=== PATIENT | female | born 1990 | race Caucasian/White ===

== ENCOUNTER → 2020-05-14 | Outpatient (CLI) | payer BC ==
--- NOTE | 2020-05-14 11:14 | Diagnostic Imaging Report ---
EXAM: US ABDOMEN COMPLETE DATE: 05/14/2020 10:13 AM INDICATION: Abdominal pain COMPARISON: None FINDINGS: The visualized pancreas appears unremarkable. The liver is normal in size measuring 13.9 cm in length. Hepatic echogenicity is within normal limits. No focal hepatic abnormality is identified. The main portal vein is patent with antegrade flow and diameter of 0.7 cm, within normal limits. The gallbladder is unremarkable. There is no evidence for cholelithiasis, gallbladder wall thickening, or pericholecystic fluid. There is no intra or extra hepatic biliary ductal dilatation. The common bile duct measures 2 mm sonographic Parry's sign is negative. The spleen is normal in size measuring 8.2 cm in length and demonstrates an unremarkable sonographic appearance. The kidneys are normal in size measuring 10.7 cm in length on the right and 10.6 cm in length on the left. Cortical thickness and echogenicity is within normal limits. There is no evidence for solid renal mass, hydronephrosis, or shadowing calculi. The visualized portions the IVC and aorta are within normal limits. There is no ascites visualized. IMPRESSION: Unremarkable abdominal ultrasound examination. Signed by: Dr. Myke Moses MD on 05/14/2020 11:11 AM
--- NOTE | 2020-05-14 11:16 | Diagnostic Imaging Report ---
EXAM: US PELVIS COMPLETE NON OB DATE: 05/14/2020 10:22 AM INDICATION: Lower abdominal pain COMPARISON: None FINDINGS: Transabdominal images were obtained of the pelvis. The uterus is normal in size measuring 8.0 x 4.2 x 5.1 cm. No focal intrauterine lesion is identified. The endometrial stripe appears unremarkable measuring 2 mm in maximal thickness, within normal limits. The right ovary measures 3.2 x 1.8 x 2.8 cm. The left ovary measures 3.2 x 2.1 x 2.6 cm. No abnormal adnexal masses are identified. No free fluid is visualized within the pelvis. IMPRESSION: Unremarkable transabdominal pelvic ultrasound examination. Signed by: Dr. Myke Moses MD on 05/14/2020 11:12 AM
== END ==
LOC: US 09:43
PROVIDERS: ATTEND Internal Medicine Gastroenterology
DX: R10.30 Lower abdominal pain, unspecified (principal)
CPT/HCPCS: 76700; 76856

== ENCOUNTER → 2020-05-20 | Day surgery (SDC) | payer BC, OTHER ==
[~2020-05-20] MED LIST: FENTANYL CITRATE/PF 100MCG/2 ML INJ ONE; HYOSCYAMINE 0.125 MG TAB ONE; MIDAZOLAM HCL 2 MG/2 ML VIAL ONE; PANTOPRAZOLE 40 MG 10ML VIAL ONE; PROPOFOL IV EMULSION 10 MG/ML 20 ML VIAL ONE
[2020-05-20 13:26] VITALS: BP 113/87
[2020-05-20 15:41] LABS: WBC,FECAL (FECAL LACTOFERRIN) NEGATIVE (NEGATIVE)
--- NOTE | 2020-05-20 16:03 | Operative Report ---
DATE OF PROCEDURE: 05/20/2020 SURGEON: Alessandro Tan MD PROCEDURES: EGD with biopsies and colonoscopy with biopsies. INDICATIONS FOR EGD: Heartburn, bloating. INDICATIONS FOR COLONOSCOPY: Lower abdominal pain, chronic diarrhea. MEDICATIONS: The patient was done under MAC, please see anesthesiologist's note. PROCEDURE IN DETAIL: With the patient in the left lateral decubitus position, a flexible fiberoptic Olympus gastroscope was introduced into the esophagus under direct visualization without any difficulty. There was some patchy erythema noted in distal esophagus. The scope was then advanced with ease into the stomach and mucosa overlying the antrum and the body revealed some patchy erythema and low-grade to moderate edema, and biopsies were obtained and sent to stain for H. pylori. Pylorus was of normal contour and shape, was intubated with ease and the scope was advanced all the way to the second portion of the duodenum. Biopsies were obtained from the proximal second portion and the duodenal bulb to rule out sprue. The scope was then withdrawn back into the stomach and retroflexed, mucosa overlying the fundus and the cardia appeared to be within normal limits. The scope was then straightened out, it was subsequently withdrawn, and the patient tolerated the procedure well. IMPRESSION: 1. Distal esophagitis, mild. 2. Gastritis, biopsied, biopsies sent to stain for Helicobacter pylori. 3. Rule out sprue. PLAN: Follow up histology. Initiate Protonix 40 mg one p.o. q.a.m. before meals. The patient was then turned around and after adequate lubrication of the anal canal, a flexible fiberoptic Olympus colonoscope was inserted into the rectum with ease and advanced all the way to the cecum. Mucosa overlying the cecum appeared to be within normal limits. The ileocecal valve was intubated and the scope was advanced into the terminal ileum. Approximately, 3 ulcers were noted in the terminal ileum and there were minute without active bleeding or stigmata of recent hemorrhage. Biopsies were obtained. The scope was then withdrawn back into the colon. The mucosa overlying the ascending and the transverse appeared to be within normal limits. There was some patchy inflammatory changes noted in the distal descending, the sigmoid and the rectum, and multiple random biopsies were obtained. The scope was then retroflexed into the distal rectum and small internal hemorrhoids were noted, none of which was actively bleeding. The scope was then straightened out and it was subsequently withdrawn after securing an adequate stool specimen that was sent for the appropriate stool studies. The patient tolerated the procedure well. IMPRESSION: 1. Ulcerative ileitis, biopsied. 2. Patchy inflammatory changes, left colon, random biopsies obtained. 3. Proctitis, mild. Biopsied. 4. Internal hemorrhoids, none actively bleeding. PLAN: Follow up histology. Follow up stool studies. Initiate Bentyl 10 mg one p.o. t.i.d. VSL#3 one p.o. b.i.d. Check IBD panel, CRP, and sedimentation rate. Alessandro Tan MD [facility] [place]/MODL /[id number] cc: Dr. Iman Ruiz
[2020-05-21 15:13] LABS: C DIFFICILE TOXIN A&B AMP PROB NEGATIVE (NEGATIVE)
[2020-05-25 08:12] LABS: ENDOMYSIAL ANTIBODIES, IGA Negative (Negative)
== END | disposition home or self-care (01) ==
LOC: OR 09:24
PROVIDERS: ATTEND Internal Medicine Gastroenterology
DX: K51.90 Ulcerative colitis, unspecified, without complications (principal); K29.70 Gastritis, unspecified, without bleeding; K20.9 Esophagitis, unspecified; K62.89 Other specified diseases of anus and rectum; K21.9 Gastro-esophageal reflux disease without esophagitis; K64.8 Other hemorrhoids; F31.9 Bipolar disorder, unspecified; F41.9 Anxiety disorder, unspecified; Z01.812 Encounter for preprocedural laboratory examination; Z11.59 Encounter for screening for other viral diseases
CPT/HCPCS: 36415; 43239; 45380; 81025; 82784; 83516; 83630; 83993; 85651; 86140; 86256 ×2; 86671; 87045; 87177; 87328; 87493; C9113; J2250; J2704; J3010; U0002